=== PATIENT | female | born 1950 | race Caucasian/White ===

== ENCOUNTER 2021-12-26 09:29 | Day surgery (SDC) | payer MEDICARE, BC ==
--- NOTE | 2021-12-26 08:12 | HP ---
DATE OF SURGERY: 12/26/2021 HISTORY OF PRESENT ILLNESS: The patient is a 71-year-old with last colonoscopy five or six years ago and had some polyps. No bloody stools. No change in bowel movements. No pain. Family history uncle with colon cancer. Given her history of polyps and family history of colon cancer, she is in need of follow up screening colonoscopy. PAST MEDICAL HISTORY: Diabetes, hyperlipidemia, reflux and some anxiety. PAST SURGICAL HISTORY: Tonsillectomy. Cholecystectomy. Ovary removed in the past. MEDICATIONS: Metformin, Sertraline, atorvastatin, Prilosec. ALLERGIES: TETRACYCLINE (HIVES). FAMILY HISTORY: Uncle with colon cancer. SOCIAL HISTORY: No smoking alcohol abuse. REVIEW OF SYSTEMS: Fourteen systems reviewed. Negative or noncontributory as above and per preadmission questionnaire. PHYSICAL EXAMINATION: GENERAL: No acute distress. HEENT: Sclerae nonicteric. NECK: No JVD. CHEST: Equal excursion, nonlabored breathing. CVS: Regular rate and rhythm. ABDOMEN: Soft. No peritoneal signs. EXTREMITIES: No significant edema. NEURO: Alert, oriented, moving extremities symmetrically. RECTAL: Deferred timed to endoscopy exam. PSYCH: Appropriate mood and affect. IMPRESSION: History of polyps, family history of colon cancer, I feel the patient is in need of follow up screening colonoscopy. I feel she is a candidate. General risk of bleeding or infection, risk of bowel injury or perforation possibly requiring open procedure, risk of missed or nondiagnosis or incomplete exam possibly requiring barium enema, other studies or procedures. General risk of anesthesia or sedation, risk of bowel prep but not limited to, consent obtained. Will proceed with screening colonoscopy as an outpatient.
[2021-12-26] MEDS ORDERED: Lactated Ringers 1,000 ML IV SCH (10:30)
[2021-12-26] MEDS ORDERED: DIPRIVAN 200 MG/20 ML IV ONE ×2 (12:44→12:56)
[2021-12-26] MEDS ORDERED: Lactated Ringers 1,000 ML IV ONE (12:44)
[2021-12-26 13:51] VITALS: O2SAT 96
[2021-12-26 14:03] VITALS: BP 144/81; PULSE 65
--- NOTE | 2021-12-27 07:49 | OP ---
SURGERY DATE/TIME: 12/26/2021 1243 PREOPERATIVE DIAGNOSIS: History of polyps, family history of colon cancer, need for follow up colonoscopy. POSTOPERATIVE DIAGNOSES: 1) Small cecal polyps x2. 2) Mild diverticulosis. 3) Fair but limited bowel prep. 4) ASA Class II. 5) Withdrawal time approximately 7 minutes. PROCEDURES: 1) Colonoscopy to cecum. 2) Hot biopsy polypectomy cecal polyps x2. SURGEON: Dr. Hamlet Macias. ANESTHESIA: MAC. ESTIMATED BLOOD LOSS: Minimal. INDICATIONS: As noted above. Risks and benefits explained in detail but not limited to and consent obtained. DESCRIPTION OF PROCEDURE AND FINDINGS: The patient is taken to the endoscopy room. MAC anesthesia induced. Digital rectal exam did not reveal any rectal masses. Video colonoscope inserted and passed up through the slightly tortuous sigmoid, descending, transverse and ascending colon around to the cecum. Appendiceal orifice and valve were well visualized and photo documented. Prep overall was fair but on the limited side as there was a moderately large amount of liquidy semisolid stool suctioned irrigated as clear as possible just slightly limiting the exam for very small lesions. There were two small polyps in the cecum removed with hot biopsy polypectomy. Good hemostasis noted. Otherwise the scope was slowly and carefully withdrawn. She had some mild diverticulosis and spasm throughout the colon. No signs of any large polyps, masses or obstructing lesions. Again, the prep did limit the exam slightly. Given the quality of the prep likely would recommend follow up colonoscopy in two to three years pending on final path results. Again withdrawal time had been around seven minutes.
== END 2021-12-26 14:07 | disposition home or self-care (01) ==
LOC: SDC 09:29
PROVIDERS: ATTEND Surgery
DX: Z12.11 Encounter for screening for malignant neoplasm of colon (principal); Z09 Encounter for follow-up examination after completed treatment for conditions other than malignant neoplasm; K63.5 Polyp of colon; K57.30 Diverticulosis of large intestine without perforation or abscess without bleeding; Z86.010 Personal history of colon polyps; Z80.0 Family history of malignant neoplasm of digestive organs; E11.9 Type 2 diabetes mellitus without complications
CPT/HCPCS: 82947; 99100; J2704